=== PATIENT | male | born 1990 | race Caucasian/White ===

== ENCOUNTER 2017-04-23 07:00 | Emergency (ER) | payer MEDICAID, OTHER ==
[2017-04-23 07:01] VITALS: BMI 25.0
[2017-04-23 07:26] VITALS: BP 146/98; PULSE 96; RESP 18; TEMP 98.1; O2SAT 100
--- NOTE | 2017-04-23 08:10 | ED PDOC ---
Upper Extremity Pain/Injury Time Seen by Provider: 04/23/17 07:42 Chief Complaint (Nursing): Upper Extremity Problem/Injury Chief Complaint (Provider): Left hand pain History Per: Patient History/Exam Limitations: no limitations Onset/Duration Of Symptoms: Days (x4), Worse Since (onset) Current Symptoms Are (Timing): Still Present Quality: "Pain" Additional Complaint(s): Raymon Vaughn is a 26 year old male, with a past medical history of rheumatoid arthritis, who presents to the emergency department complaining of a progressively worst left hand pain and swelling onset for the past 3 or 4 days. Patient unable to bend 4th and 5th digit secondary to swelling and pain. Patient states symptoms were controlled with methotrexate and motrin, but stopped taking due to running out of insurance. Patient denies any trauma or fever. No further medical complaints. PMD: Rachel Lynch Past Medical History Reviewed: Historical Data, Nursing Documentation, Vital Signs Vital Signs: Last Vital Signs Temp 98.1 F 04/23/17 07:22 Pulse 96 H 04/23/17 07:22 Resp 18 04/23/17 07:22 BP 146/98 H 04/23/17 07:22 Pulse Ox 100 04/23/17 07:22 - Medical History PMH: Diabetes (type I), HTN ("pre hypertension as per patient), Rheumatoid Arthritis - Surgical History Surgical History: No Surg Hx - Family History Family History: States: Unknown Family Hx - Social History Current smoker - smoking cessation education provided: Yes (Some days smoker) Alcohol: Social Drugs: Cannabis - Home Medications Home Medications: Ambulatory Orders Medication Instructions Recorded Insulin Glargine, Recombina 24 unit SQ HS 03/05/16 [Lantus] Insulin Lispro [Humalog Kwikpen 12 unit SQ DAILY 03/05/16 U-100] Ibuprofen [Motrin] 600 mg PO Q6 #20 tab 06/13/16 predniSONE [predniSONE Tab] 10 mg PO TID #15 tab 04/23/17 traMADol [Ultram] 50 mg PO Q8 #10 tab 04/23/17 - Allergies Allergies/Adverse Reactions: Allergies Allergy/AdvReac Type Severity Reaction Status Date / Time shrimp Allergy NAUSEA Verified 03/19/16 14:51 Review of Systems ROS Statement: Except As Marked, All Systems Reviewed And Found Negative Constitutional: Negative for: Fever Musculoskeletal: Positive for: Hand Pain (left hand pain and swelling) Physical Exam - Reviewed Nursing Documentation Reviewed: Yes Vital Signs Reviewed: Yes - Physical Exam Appears: Positive for: Non-toxic Head Exam: Positive for: ATRAUMATIC, NORMAL INSPECTION, NORMOCEPHALIC Skin: Positive for: Normal Color, Warm, Dry Eye Exam: Positive for: Normal appearance Neck: Positive for: Painless ROM, Supple Respiratory: Negative for: Respiratory Distress Extremity: Positive for: Swelling (left hand. Nonerythematous, no warmth). Negative for: Pedal Edema, Calf Tenderness, Deformity (no joint deformity noted) Neurologic/Psych: Positive for: Alert, Oriented (x3). Negative for: Motor/ Sensory Deficits (motor 4/4 on all extremities) - ECG O2 Sat by Pulse Oximetry: 100 (RA) Pulse Ox Interpretation: Normal Medical Decision Making Medical Decision Making: Initial Plan: --Accucheck --reevaluation Scribe Attestation: Documented by Ralph Stevens, acting as a scribe for Luisito Hebert MD Provider Scribe Attestation: All medical record entries made by the Scribe were at my direction and personally dictated by me. I have reviewed the chart and agree that the record accurately reflects my personal performance of the history, physical exam, medical decision making, and the department course for this patient. I have also personally directed, reviewed, and agree with the discharge instructions and disposition. Disposition - Clinical Impression Clinical Impression: Rheumatoid arthritis, Diabetes - Patient ED Disposition Is Patient to be Admitted: No Counseled Patient/Family Regarding: Diagnosis, Need For Followup, Rx Given - Disposition Referrals: Rachel Lynch MD [Primary Care Provider] - [facility] [Outside] Disposition: Routine/Home Disposition Time: 09:06 Condition: FAIR Prescriptions: predniSONE [predniSONE Tab] 10 mg PO TID #15 tab traMADol [Ultram] 50 mg PO Q8 #10 tab Instructions: Rheumatoid Arthritis (ED) Forms: [employer] (Thai)
== END 2017-04-23 09:20 | disposition home or self-care (01) ==
LOC: H.ER 07:00 → SUPCPDRO 07:00 → H.ER 09:20
DX: M06.9 Rheumatoid arthritis, unspecified (principal); E11.9 Type 2 diabetes mellitus without complications; Z79.4 Long term (current) use of insulin; I10 Essential (primary) hypertension

== ENCOUNTER 2018-05-18 09:21 | Emergency (ER) | payer MEDICAID, OTHER ==
[2018-05-18 09:23] VITALS: BMI 25.7
[2018-05-18 09:25] VITALS: O2SAT 98
--- NOTE | 2018-05-18 10:56 | ED PDOC ---
History of Present Illness History of Present Illness: 27 year old male with a past medical history of type 1 diabetes and rheumatoid arthritis who is presenting to the ED for evaluation of cold onset 2-3 days ago. Patient states that cold has been ongoing for a few days but today he started having body aches and a sore throat. He denies any fevers, vomiting, and diarrhea. Of note, patient is unsure if he got the flu shot this season. PMD: none provided HPI: Influenza Time Seen by Provider: 05/18/18 09:25 Chief Complaint: Cough, Cold, Congestion Chief Complaint (Provider): Cough, Cold, Congestion History Per: Patient Exam Limitations: no limitations Onset/Duration Of Symptoms: Days Symptoms include: bodyaches, sore throat. denies: fever, vomiting, diarrhea Past Medical History Reviewed: Historical Data, Nursing Documentation, Vital Signs Vital Signs: Last Vital Signs Temp 97.5 F L 05/18/18 09:23 Pulse 86 05/18/18 09:23 Resp 17 05/18/18 09:23 BP 153/94 H 05/18/18 09:23 Pulse Ox 98 05/18/18 09:30 - Medical History PMH: Diabetes (type I), HTN, Rheumatoid Arthritis - Surgical History Surgical History: No Surg Hx - Family History Family History: States: Unknown Family Hx - Social History Current smoker - smoking cessation education provided: No Alcohol: Occasional Drugs: Cannabis - Home Medications Home Medications: Ambulatory Orders Medication Instructions Recorded Insulin Glargine, Recombina 24 unit SQ HS 03/05/16 [Lantus] Insulin Lispro [Humalog Kwikpen 12 unit SQ DAILY 03/05/16 U-100] Ibuprofen [Motrin] 600 mg PO Q6 #20 tab 06/13/16 RX: predniSONE [predniSONE Tab] 10 mg PO TID #15 tab 04/23/17 RX: traMADol [Ultram] 50 mg PO Q8 #10 tab 04/23/17 - Allergies Allergies/Adverse Reactions: Allergies Allergy/AdvReac Type Severity Reaction Status Date / Time shrimp Allergy NAUSEA Verified 05/18/18 09:29 Review of Systems ROS Statement: Except As Marked, All Systems Reviewed And Found Negative Constitutional: Positive for: Other (body aches ). Negative for: Fever ENT: Positive for: Throat Pain Gastrointestinal: Negative for: Vomiting, Diarrhea Physical Exam - Reviewed Nursing Documentation Reviewed: Yes Vital Signs Reviewed: Yes - Physical Exam Appears: Positive for: Well, Non-toxic, No Acute Distress Head Exam: Positive for: ATRAUMATIC, NORMAL INSPECTION, NORMOCEPHALIC Skin: Positive for: Normal Color, Warm, DRY Eye Exam: Positive for: EOMI, Normal appearance, PERRL ENT: Positive for: Normal ENT Inspection Neck: Positive for: Normal Cardiovascular/Chest: Positive for: Regular Rate, Rhythm. Negative for: Murmur Respiratory: Positive for: Normal Breath Sounds. Negative for: Respiratory Distress Gastrointestinal/Abdominal: Positive for: Normal Exam, Soft. Negative for: Tenderness Extremity: Positive for: Normal ROM Neurologic/Psych: Positive for: Alert, Oriented. Negative for: Motor/Sensory Deficits Medical Decision Making Medical Decision Making: Time: 10:47 Plan: sore throat and body ahces --Motrin 600 mg PO --Influenza A B --Rapid strep 13:00 Patient's vitals signs improved and labs were negative. pt appears comfortable. He is stable for discharge home with follow up with PMD. Scribe Attestation: Documented by Belén French, acting as a scribe for Gauri Malone MD. Provider Scribe Attestation: All medical record entries made by the Scribe were at my direction and personally dictated by me. I have reviewed the chart and agree that the record accurately reflects my personal performance of the history, physical exam, medical decision making, and the department course for this patient. I have also personally directed, reviewed, and agree with the discharge instructions and disposition. - ECG O2 Sat by Pulse Oximetry: 98 Disposition - Clinical Impression Clinical Impression: Common cold - Patient ED Disposition Is Patient to be Admitted: No Counseled Patient/Family Regarding: Studies Performed, Diagnosis, Need For Followup - Disposition Disposition: Routine/Home Disposition Time: 13:20 Condition: IMPROVED Additional Instructions: follow up with your primary doctor in 1-2 days for reevaluation return to the ED with any worsening or concerning symptoms Instructions: Cough, Runny Nose, and the Common Cold (DC) Forms: [employer] (Slovenian)
[2018-05-18 13:22] VITALS: BP 125/68; PULSE 81; RESP 18; TEMP 98.5
== END 2018-05-18 13:29 | disposition home or self-care (01) ==
LOC: H.ER 09:21
DX: M79.10 Myalgia, unspecified site (principal); J00 Acute nasopharyngitis [common cold]; I10 Essential (primary) hypertension; M06.9 Rheumatoid arthritis, unspecified; Z79.4 Long term (current) use of insulin

== ENCOUNTER 2018-06-01 18:36 | Emergency (ER) | payer MEDICAID ==
[2018-06-01 18:37] VITALS: BMI 25.7
[2018-06-01 18:47] VITALS: TEMP 98
--- NOTE | 2018-06-01 20:40 | ED PDOC ---
HPI: Chest Pain Time Seen by Provider: 06/01/18 19:10 Chief Complaint (Nursing): Chest Pain History Per: Patient History/Exam Limitations: no limitations Onset/Duration Of Symptoms: Hrs Additional Complaint(s): 27 year old with history of DM, RA presenting with chest pain. States it started at rest around 4PM on the upper L side of his chest radiating to the L arm, states it feels like a throbbing pain that shoots down the arm. Not associated with shortness of breath, states he felt dizziness this morning. No fevers, cough, sweats, chills. States that this has happened before but not for as long as today. PMD: [facility] Past Medical History Reviewed: Historical Data, Nursing Documentation, Vital Signs Vital Signs: Last Vital Signs Temp 98.0 F 06/01/18 18:44 Pulse 99 H 06/01/18 18:44 Resp 16 06/01/18 18:44 BP 147/103 H 06/01/18 18:44 Pulse Ox 100 06/01/18 18:44 - Medical History PMH: Diabetes (type I), HTN (not currently on medication), Rheumatoid Arthritis - Family History Family History: States: Unknown Family Hx - Home Medications Home Medications: Ambulatory Orders Medication Instructions Recorded Insulin Glargine, Recombina 24 unit SQ HS 03/05/16 [Lantus] Insulin Lispro [Humalog Kwikpen 12 unit SQ DAILY 03/05/16 U-100] Ibuprofen [Motrin] 600 mg PO Q6 #20 tab 06/13/16 predniSONE [predniSONE Tab] 10 mg PO TID #15 tab 04/23/17 traMADol [Ultram] 50 mg PO Q8 #10 tab 04/23/17 - Allergies Allergies/Adverse Reactions: Allergies Allergy/AdvReac Type Severity Reaction Status Date / Time shrimp Allergy NAUSEA Verified 05/18/18 09:29 Review of Systems ROS Statement: Except As Marked, All Systems Reviewed And Found Negative Cardiovascular: Positive for: Chest Pain Musculoskeletal: Positive for: Arm Pain Physical Exam - Reviewed Nursing Documentation Reviewed: Yes Vital Signs Reviewed: Yes - Physical Exam Appears: Positive for: Well, Non-toxic, No Acute Distress Head Exam: Positive for: ATRAUMATIC, NORMAL INSPECTION, NORMOCEPHALIC Skin: Positive for: Normal Color, Warm, DRY Eye Exam: Positive for: EOMI, Normal appearance, PERRL ENT: Positive for: Normal ENT Inspection Neck: Positive for: Normal, Painless ROM Cardiovascular/Chest: Positive for: Regular Rate, Rhythm Respiratory: Positive for: CNT, Normal Breath Sounds Gastrointestinal/Abdominal: Positive for: Normal Exam, Soft Back: Positive for: Normal Inspection Extremity: Positive for: Normal ROM Neurologic/Psych: Positive for: Alert, supervisor photoengraving II-XII, Oriented. Negative for: Motor/Sensory Deficits - Laboratory Results Result Diagrams: 06/01/18 21:04 06/01/18 20:39 - ECG ECG Rhythm: Positive for: Normal QRS, Normal ST Segment, Sinus Rhythm Rate: 82 O2 Sat by Pulse Oximetry: 100 Medical Decision Making Medical Decision Makin27 year old presenting with chest pain --Very well appearing, currently stable vitals, BP 125/76, HR 83 --Unlikely cardiac chest pain, but given history, will check enzymes --NSAID for likely musculoskeletal pain 1045PM --Patient is chest pain free at this time --Vitals stable --Informed of results, counseled patient on importnace of primary care followup, will give [facility] referral --Well appearing upon discharge Disposition - Clinical Impression Clinical Impression: Atypical chest pain - Patient ED Disposition Is Patient to be Admitted: No - Disposition Referrals: [facility] [Outside] Disposition: Routine/Home Disposition Time: 22:48 Condition: GOOD Instructions: Chest Pain That Is Not Caused by the Heart (DC) Forms: [facility] (Occitan)
[2018-06-01 21:04] LABS: BLOOD UREA NITROGEN 14 mg/dl (9-20); CALCIUM 9.3 mg/dL (8.4-10.2); GFR NON-AFRICAN AMERICAN > 60
[2018-06-01 21:08] LABS: BASO # 0.1 K/uL (0.0-0.2); BASO % 1.4 % (0.0-2.0); EOS # 0.4 K/uL (0.0-0.7); EOS % 4.7 % (0.0-4.0); HEMOGLOBIN 14.8 g/dL (12.0-18.0); LYMPH # 1.9 K/uL (1.0-4.3); LYMPH % 19.7 % (20.0-40.0); MEAN CELL VOLUME 65.4 fl (80.0-94.0); MEAN CORPUSCULAR HEMOGLOBIN 20.7 pg (27.0-31.0); MEAN CORPUSCULAR HGB CONC 31.6 g/dL (33.0-37.0); MONO # 0.9 K/uL (0.0-0.8); NEUT # 6.2 K/uL (1.8-7.0); NEUT % 65.2 % (50.0-75.0); NRBC % 0.1 % (0.0-0.0); RBC 7.14 Mil/uL (4.40-5.90); RED CELL DISTRIBUTION WIDTH 16.5 % (11.5-14.5); WHITE BLOOD COUNT 9.6 K/uL (4.8-10.8)
[2018-06-02 00:27] VITALS: BP 131/71; PULSE 74; RESP 17; O2SAT 99
--- NOTE | 2018-06-02 09:29 | RAD ---
Date of service: 06/01/2018 HISTORY: Chest pain COMPARISON: No prior. TECHNIQUE: Chest PA and lateral FINDINGS: LINES AND TUBES: None. LUNG AND PLEURA: The lungs are well inflated and clear. No pleural effusion or pneumothorax. HEART AND MEDIASTINUM: The heart is not enlarged. No aortic atherosclerotic calcifications present. The hilar and mediastinal contours are within normal limits. SKELETAL STRUCTURES: The bony structures are within normal limits for the patient's age. VISUALIZED UPPER ABDOMEN: Normal. OTHER FINDINGS: None. IMPRESSION: No active pulmonary disease.
--- NOTE | 2018-06-02 12:00 | CARD ---
APPROVED REPORT Date of service: 06/01/2018 EKG Measurement Heart [id number] <Conclusion> Normal sinus rhythm Normal ECG
== END 2018-06-01 23:25 | disposition home or self-care (01) ==
LOC: H.ER 18:36
DX: R07.89 Other chest pain (principal)